=== PATIENT | male | born 1985 | race Caucasian/White ===

== ENCOUNTER 2019-03-17 03:25 | Outpatient (CLI) | payer MEDICAID | END 2019-03-17 03:26 | disposition critical access hospital (66) | LOC: EMS 03:25 | PROVIDERS: ATTEND Surgery | DX: S05.92XA Unspecified injury of left eye and orbit, initial encounter (principal); X58.XXXA Exposure to other specified factors, initial encounter | CPT/HCPCS: A0425; A0429 ==

== ENCOUNTER 2019-03-17 03:42 | Emergency (ER) | payer MEDICAID ==
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
[2019-03-17] MEDS ORDERED: cephALEXin 250 MG CAPSULE PO STA (05:13)
[2019-03-17] MEDS ORDERED: oxyCODONE 5 MG TABLET PO STA (05:13)
[2019-03-17] MEDS ORDERED: BACITRACIN OINT TOP STA (05:13)
[2019-03-17 05:31] VITALS: BP 120/57
== END 2019-03-17 05:29 | disposition home or self-care (01) ==
LOC: ED 03:42
DX: S01.112A Laceration without foreign body of left eyelid and periocular area, initial encounter (principal); H11.32 Conjunctival hemorrhage, left eye; Y04.2XXA Assault by strike against or bumped into by another person, initial encounter; F17.200 Nicotine dependence, unspecified, uncomplicated
CPT/HCPCS: 99283; 99284; A9270

== ENCOUNTER 2019-12-26 20:00 | Emergency (ER) | payer MEDICAID ==
[2019-12-26] MEDS ORDERED: LIDOCAINE MPF 1%-EPI 1:200000 10 ML VIAL SUBQ STA (20:37)
[2019-12-26] MEDS ORDERED: LIDOCAINE 2% 50 ML MDV SUBQ STA (20:50)
[2019-12-26] MEDS ORDERED: LIDOCAINE MPF 2%-EPI 1:200000 20 ML VIAL ONE (20:57)
[2019-12-26] MEDS ORDERED: BACITRACIN ZINC OINT 1 PACKET TOP STA (21:15)
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
[2019-12-26 21:23] VITALS: BP 122/99
[2019-12-26] MEDS ORDERED: LIDOCAINE 2%-EPI 1:100000 20 ML MDV SUBQ STA (21:25)
== END 2019-12-26 21:30 | disposition home or self-care (01) ==
LOC: ED 20:00
DX: S01.81XA Laceration without foreign body of other part of head, initial encounter (principal); S09.90XA Unspecified injury of head, initial encounter; V19.3XXA Pedal cyclist (driver) (passenger) injured in unspecified nontraffic accident, initial encounter; W22.09XA Striking against other stationary object, initial encounter; Y93.55 Activity, bike riding; Y92.89 Other specified places as the place of occurrence of the external cause; B86 Scabies; F17.200 Nicotine dependence, unspecified, uncomplicated
CPT/HCPCS: 12011; 99282; 99284